=== PATIENT | male | born 1975 | race Caucasian/White ===

== ENCOUNTER 2016-06-27 21:40 | Emergency (ER) | payer SELFPAY ==
[~2016-06-27 21:40] MED LIST: BACTRIM DS TABL1 TA1 PO; HYDROCODON-ACE1 EAC9 PO; IBUPROFEN800 MG PO; LORTAB 7.5-5001 TAB PO; NO MEDICATIONS; PERCOCET5/325 PO; TRAMADOL HCL50 M2 PO; VOLTAREN75 MG PO
== END 2016-06-27 23:48 | disposition home or self-care (01) ==
LOC: SED 21:40
DX: L02.416 Cutaneous abscess of left lower limb (principal); L03.116 Cellulitis of left lower limb; F17.200 Nicotine dependence, unspecified, uncomplicated
CPT/HCPCS: 10060; 87070; 87077; 87186; 87205; 99283

== ENCOUNTER 2016-08-23 21:05 | Emergency (ER) | payer SELFPAY ==
--- NOTE | ~2016-08-23 | CR141 ---
[facility] A Service of [facility] RADIOLOGY TEXT RESULTS PATIENT: ARSLAN TAPIA LOCATION: SED : 77 UNIT #: [id number] AGE: [address]: Ese Caba SEX: M ORDER DR: [id number] [address] [address] [id number] MR#: [id number] Acc #: [id number] NAME: ARSLAN TAPIA : 1975 SEX: M STUDY DATE/TIME: 08/23/2016 22:03 UNIT: SED ROOM: STUDY DESCRIPTION: CR Hand Min 3 Views Lt Attending Physician: Ese Caba Pa-C Ordering Physician: Ese Caba Pa-C MEDICAL IMAGING REPORT This report is preliminary unless electronic signature is present. EXAM Left hand series 08/23/2016 HISTORY Trauma. Left hand got caught in blower fan tonight at 2015 hours. Left thumb, first finger, second digit pain, left hand. FINDINGS AP, lateral and oblique radiographs of the left hand are presented. Orthopedic fixation screw obliquely through the distal radius. Correlate with history. No acute traumatic fracture or malalignment. The joint spaces show degenerative change in the carpal-carpal joints. There are small chronic appearing soft tissue calcifications in the ulnar-carpal joint space. Soft tissue swelling of the second digit. Bandaging material overlying the second digit. No subcutaneous air or radiodense nonsurgical foreign body is seen. Dictated by... Ramone Dee M.D. THIS IS AN ELECTRONICALLY VERIFIED REPORT Ramone Dee M.D. at 08/24/2016 10:16 AM Alycia TD: 08/23/2016 23:15 JOB #: [id number] MEDICAL IMAGING REPORT Page 1 of 1
== END 2016-08-24 00:06 ==
LOC: SED 21:05
DX: S61.012A Laceration without foreign body of left thumb without damage to nail, initial encounter (principal); Z23 Encounter for immunization; F17.210 Nicotine dependence, cigarettes, uncomplicated; W26.9XXA Contact with unspecified sharp object(s), initial encounter; Y92.009 Unspecified place in unspecified non-institutional (private) residence as the place of occurrence of the external cause
CPT/HCPCS: 36415; 73130; 90471; 90715; 96374; 96376; 99284; J1170